=== PATIENT | female | born 1980 | race African-American/Black ===

== ENCOUNTER → 2017-07-07 | Outpatient (CLI) | payer OTHER ==
[~2017-07-07] MED LIST: ALBUTEROL17 GM INH; AMLODIPINE BESYL5 MG PO; GLUCOVANCE 5/501 TA1 PO; LIPITOR PO; LISINOPRIL PO; METFORMIN PO; MICRONASE5 M2 PO; NAPROSYN500 MG PO; NORCO 7.5-3251 EACH PO; TOPROL XL PO
--- NOTE | ~2017-07-07 | EKG ---
PATIENT: BRENDON SUAREZ UNIT #: [id number] Ventricular Rate: 82 BPM Atrial Rate: 82 BPM P-R Interval: 128 ms QRS Duration: 80 ms Q-T Interval: 378 ms QTC Calculation(Bezet): 441 ms P [place]: 35 degrees Calculated R [place]: 5 degrees Calculated T [place]: 16 degrees Diagnosis Line: Normal sinus rhythm Diagnosis Line: Normal ECG Diagnosis Line: When compared with ECG of 17-MAY-2012 23:21, Diagnosis Line: No significant change was found Diagnosis Line: Confirmed by THANH SANTOS MD ([id number]) on 07/08/2017 Diagnosis Line: 3:31:42 PM INTERPRETING MD: TOM DIXON
[2017-07-07 13:11] LABS: HEMATOCRIT 42.4 % (35.0-45.0); HEMOGLOBIN 14.5 gm/dL (12.0-16.0); MEAN CELL VOLUME 92.8 FL (83-96); MEAN CORPUSCULAR HEMOGLOBIN 31.7 PG (28-34); MEAN CORPUSCULAR HGB CONC 34.2 g/dL (30-36); MEAN PLATELET VOLUME 8.1 FL (6.5-11.5); RED BLOOD COUNT 4.57 X10e (3.90-5.30); RED CELL DISTRIBUTION WIDTH 13.3 % (11.0-15.5); WHITE BLOOD COUNT 6.2 X10e3 (4.0-10.5)
[2017-07-07 14:59] LABS: ALBUMIN SERUM 3.7 g/dL (3.5-5.0); BILIRUBIN,TOTAL 0.7 mg/dL (0.2-2.0); CALCIUM SERUM 9.2 mg/dL (8.4-10.2); CREATININE SERUM 0.6 mg/dL (0.6-1.4); GLOM FILT RATE Estimated 133.1 mL/min (>60); POTASSIUM 4.4 mmol/L (3.5-5.1); PROTEIN TOTAL SERUM 6.9 g/dL (6.0-8.3)
== END | disposition home or self-care (01) ==
LOC: CAMB 11:44
PROVIDERS: Specialist
DX: Z01.818 Encounter for other preprocedural examination (principal); K80.20 Calculus of gallbladder without cholecystitis without obstruction
CPT/HCPCS: 36415; 80053; 85027; 93005

== ENCOUNTER → 2017-07-11 | Day surgery (SDC) | payer OTHER ==
--- NOTE | ~2017-07-11 | OR ---
Unit #: [id number] #: [id number] Patient: BRENDON CARLSON [id number] [facility] [address] [place], [place] [address] [id number] O MR#: [id number] NAME: BRENDON CARLSON ROOM: Date of Procedure: 07/11/2017 Admission Date: 07/11/2017 Surgeon: Allen Andersen M.D. : 1980 Attending Physician: Allen Andersen M.D. Primary Care Physician: Shante Nicole M.D. OPERATIVE REPORT PREOPERATIVE DIAGNOSES Chronic cholecystitis and cholelithiasis. POSTOPERATIVE DIAGNOSES Chronic cholecystitis and cholelithiasis. PROCEDURE PERFORMED Laparoscopic cholecystectomy. ANESTHESIA General endotracheal anesthesia. ESTIMATED BLOOD LOSS Less than 10 mL. INDICATIONS FOR PROCEDURE Ms. Carlson is a 37-year-old female, who is having postprandial nausea and right upper quadrant pain. Ultrasound revealed cholelithiasis with normal biliary ductal system. Preoperative liver chemistries were normal. DESCRIPTION OF PROCEDURE The patient was admitted to [facility], positively identified, and transported to the operating room, and after induction of general endotracheal anesthesia, she was prepped and draped in usual sterile fashion. SCDs had been placed preoperatively as well. A 5-mm supraumbilical incision was made. Veress needle was placed. Pneumoperitoneum was created. Then, a 5-mm trocar was placed. Laparoscope was introduced into peritoneal cavity. Under direct vision, the epigastric and lateral ports were placed. Gallbladder was grasped and elevated. The infundibulum was retracted laterally and the triangle of Calot was dissected out clearly identifying the cystic duct, gallbladder, and cystic duct-common duct junction. The posteriorly placed cystic artery was identified. The cystic artery was doubly clipped and divided. I then dissected the gallbladder out of liver bed using cautery dissection. Once it was freed up from its hepatic attachments, it was brought out through the epigastric port. There was no spillage of bile or stones. There was excellent hemostasis. The clips were well positioned. The epigastric fascial defect was closed using a neoClose device and the closure was airtight. I then reduced the pneumoperitoneum as I removed laparoscope and trocars. A 0.25% Marcaine with epinephrine was infiltrated into each trocar site. Sponges and needle counts were correct x3. The skin was closed with 4-0 Monocryl subcuticular closure and Unit #: [id number] #: [id number] Patient: BRENDON CARLSON Dermabond skin adhesive. Sponges and needle counts were correct. The patient was transported to recovery in stable condition. The patient's boyfriend could not be found postoperatively, so he will be called, but the instructions were gone over with the patient and her boyfriend prior to surgery. Dictated by... Steffany Bains/remi TD: 07/11/2017 14:33 JOB #: [id number] OPERATIVE REPORT Page 1 of 1 X Allen Andersen MD PROCEDURE OPERATIVE NOTE
== END | disposition home or self-care (01) ==
LOC: CSUR 09:01
DX: K80.10 Calculus of gallbladder with chronic cholecystitis without obstruction (principal); J45.909 Unspecified asthma, uncomplicated; I10 Essential (primary) hypertension; E11.9 Type 2 diabetes mellitus without complications; G89.29 Other chronic pain; M54.5 Low back pain; F17.290 Nicotine dependence, other tobacco product, uncomplicated; Z79.84 Long term (current) use of oral hypoglycemic drugs; Z79.899 Other long term (current) drug therapy; Z98.51 Tubal ligation status
CPT/HCPCS: 82947; 84703; 88304; J0330; J0690; J1100; J1815; J1885; J2250; J2710; J3010